=== PATIENT | female | born 1930 | race Caucasian/White ===

== ENCOUNTER 2018-02-25 05:24 | Day surgery (SDC) | payer OTHER ==
[~2018-02-25] VITALS: Ht 160 cm; Wt 59.9 kg
--- NOTE | ~2018-02-25 | O ---
[facility] [place] [address] OPERATIVE REPORT Name: TORY SHARMA Room #: [facility]#: [id number] Admission: 02/25/18 Attend Phys: Arnulfo Mitchell MD Discharge: 02/25/18 Date of : [birth year] Report #: [id number] THIS REPORT FOR: //name// CC: [facility] physician/PCP Pratik Mitchell DATE OF SERVICE: 02/25/2018 FAMILY SUPPORT COORDINATOR: None. PREOPERATIVE DIAGNOSIS: Bilateral upper lid ptosis with superior visual field defects both eyes. POSTOPERATIVE DIAGNOSIS: Bilateral upper lid ptosis with superior visual field defects both eyes. OPERATION PERFORMED: Bilateral upper lid functional ptosis repair. FAMILY SUPPORT COORDINATOR: None. ANESTHESIA: Local with IV sedation. COMPLICATIONS: None. INDICATIONS FOR PROCEDURE: This patient has bilateral upper lid ptosis with superior visual field loss both eyes. Visual field testing demonstrates dense superior visual defects. Retesting with the upper lid elevated shows an improvement in visual field loss of over 30% and in excess of 12 degrees. The current procedure is being undertaken in order to improve the patient's visual function. Informed consent was obtained to include but not limited to the risk of loss of vision, bleeding, infection, scarring, failure to improve the problem and need for further surgery, such as adjustment of lid height. DESCRIPTION OF PROCEDURE: The patient was taken to the operating room, where 2% Xylocaine with epinephrine mixed with equal parts of 0.75% Marcaine with Wydase was administered transcutaneously to each upper lid. The patient was then prepped and draped in the usual sterile fashion. An upper lid crease incision was then made bilaterally and the dissection was carried down until the orbital septum was identified. The orbital septum was then cleared and the preaponeurotic fat identified. The levator aponeurosis was then disinserted from the anterior surface of the tarsal plate and dissected [address] [address] OPERATIVE REPORT Name: SHARMATORY Room #: [facility]#: [id number] Admission: 02/25/18 Attend Phys: Arnulfo Mitchell MD Discharge: 02/25/18 Date of : [birth year] Report #: [id number] free in the avascular Raymundo's muscle plane. The aponeurosis was then advanced and reattached to the anterior surface of the tarsal plate with interrupted mattress 6-0 Novafil sutures on each side, adjusting for height and contour. The redundant aponeurosis was then amputated. The incision was then closed with multiple interrupted 6-0 chromic sutures that were used to recreate an upper lid crease. The skin was closed with a running 6-0 plain gut suture. The wound was then cleaned and dressed with ophthalmic antibiotic ointment followed by a Telfa pad. The patient was transported to the recovery area, having tolerated the procedure well with no anesthesia or operative complications being noted. <ELECTRONICALLY SIGNED> By: Arnulfo Mitchell MD 03/01/18 [id number] [id number] Arnulfo Mitchell MD /nt
[~2018-02-25 05:24] MED LIST: ALTACE10 MG PO; ASPIRIN81 M2 PO; CALCIUM 500 +1 EAC5 PO; CENTRUM SILVER1 EAC4 PO; CHLORTHALIDONE25 MG PO; FISH OIL 1,2001 EAC6 PO; METFORMIN HCL500 MG PO; NORVASC5 MG PO; RESTASIS1 EACH OPHTHALMIC; ZETIA10 MG PO
[2018-02-25 12:08] VITALS: BP 154/58
== END 2018-02-25 13:20 | disposition home or self-care (01) ==
LOC: OR 05:24 → TBA 05:24 → OR 08:47
DX: H02.403 Unspecified ptosis of bilateral eyelids (principal); H53.462 Homonymous bilateral field defects, left side; H53.461 Homonymous bilateral field defects, right side; I10 Essential (primary) hypertension; E11.9 Type 2 diabetes mellitus without complications; E78.5 Hyperlipidemia, unspecified; Z95.1 Presence of aortocoronary bypass graft; Z90.710 Acquired absence of both cervix and uterus; Z98.41 Cataract extraction status, right eye; Z98.42 Cataract extraction status, left eye; Z98.890 Other specified postprocedural states; Z79.899 Other long term (current) drug therapy; Z79.82 Long term (current) use of aspirin
CPT/HCPCS: 50010; 50101; 50386; 50398; 51636; 56528; 56531; 62110; 62850; 70005